=== PATIENT | female | born 1955 | race Caucasian/White ===

== ENCOUNTER → 2020-01-20 15:42 | Outpatient (BNVA) | payer MEDICARE, OTHER, SELFPAY | PROVIDERS: Family Provider Family Medicine; PCP Family Medicine; Visit Provider Emergency Medicine | DX: J11.1 Influenza due to unidentified influenza virus with other respiratory manifestations (principal) | CPT/HCPCS: 87804 ==

== ENCOUNTER → 2020-10-04 14:39 | Outpatient (BNVA) | payer MEDICARE, OTHER, SELFPAY | PROVIDERS: Family Provider Family Medicine; PCP Family Medicine; Visit Provider Emergency Medicine | DX: R68.89 Other general symptoms and signs (principal); Z20.828 Contact with and (suspected) exposure to other viral communicable diseases; J01.00 Acute maxillary sinusitis, unspecified | CPT/HCPCS: 87400; 87635 ==

== ENCOUNTER → 2022-10-28 14:09 | Outpatient (BNVA) | payer MEDICARE, OTHER, SELFPAY | PROVIDERS: Family Provider Family Medicine; PCP Family Medicine; Visit Provider Nurse Practitioner Family | DX: H93.8X3 Other specified disorders of ear, bilateral (principal); B34.9 Viral infection, unspecified | CPT/HCPCS: 87400; 87426; 87880 ==

== ENCOUNTER → 2023-09-16 16:44 | Outpatient (BNVA) | payer MEDICARE, OTHER, SELFPAY | PROVIDERS: Family Provider Family Medicine; PCP Nurse Practitioner; Visit Provider Nurse Practitioner Family | DX: R53.83 Other fatigue (principal); E03.9 Hypothyroidism, unspecified; R53.1 Weakness | CPT/HCPCS: 80053; 84439; 84443; 84480; 85025 ==

== ENCOUNTER → 2023-09-22 09:14 | Outpatient (BNVA) | payer MEDICARE, OTHER, SELFPAY | PROVIDERS: Family Provider Family Medicine; PCP Nurse Practitioner; Visit Provider Nurse Practitioner | DX: R73.9 Hyperglycemia, unspecified (principal) | CPT/HCPCS: 83036 ==

== ENCOUNTER → 2023-09-27 13:44 | Outpatient (BNVA) | payer MEDICARE, OTHER, SELFPAY | PROVIDERS: Family Provider Family Medicine; PCP Nurse Practitioner; Visit Provider Emergency Medicine | DX: R39.9 Unspecified symptoms and signs involving the genitourinary system (principal); N76.0 Acute vaginitis | CPT/HCPCS: 81000; 87086 ==

== ENCOUNTER → 2024-01-25 11:25 | Outpatient (BNVA) | payer MEDICARE, OTHER, SELFPAY | PROVIDERS: Family Provider Family Medicine; PCP Nurse Practitioner; Visit Provider Nurse Practitioner | DX: M54.50 Low back pain, unspecified (principal); M47.894 Other spondylosis, thoracic region | CPT/HCPCS: 72100 ==

== ENCOUNTER 2024-02-11 12:52 | Outpatient (CLI) | payer MEDICARE, OTHER, SELFPAY ==
--- NOTE | 2024-02-11 13:00 | MM_ITS ---
WS: [id number] BILATERAL 3D TOMOSYNTHESIS DIGITAL DIAGNOSTIC MAMMOGRAPHY WITH CAD CLINICAL INFORMATION: T14.8XXA - Other injury of unspecified body region, initi... HISTORY: Fell with bruising RIGHT breast COMPARISON: 2020 TECHNIQUE: Bilateral CC, MLO, and ML views. FINDINGS: Scattered fibroglandular densities bilaterally. Large dense parenchymal density RIGHT breast likely h ematoma from recent fall. This measures approximately 9.7 x 5.8 cm. Ultrasound is pending. LEFT breast is unremarkable. No suspicious abnormalities in the LEFT breast. Biopsy clip LEFT breast. ULTRASOUND BREAST RIGHT TECHNIQUE: Ultrasound right breast focused area of concern. CLINICAL INFORMATION: T14.8XXA - Other injury of unspecified body region, initi... FINDINGS: Ultrasound RIGHT breast area of concern. In the area of interest is a suspected partially liquefied h ematoma measuring approximately 5.3 x 4.6 x 9.1 cm. No other suspicious abnormalities. Recommend foll ow-up to resolution. IMPRESSION: MM/[place] [id number] BI-RADS: 3-Probably Benign FOLLOW UP: 6 Month Follow-up Recommend 6-month follow-up RIGHT breast diagnostic mammography and ultrasound to confirm improvement/resolution of the suspected hematoma
--- NOTE | 2024-02-11 13:30 | US_ITS ---
WS: [id number] BILATERAL 3D TOMOSYNTHESIS DIGITAL DIAGNOSTIC MAMMOGRAPHY WITH CAD CLINICAL INFORMATION: T14.8XXA - Other injury of unspecified body region, initi... HISTORY: Fell with bruising RIGHT breast COMPARISON: 2020 TECHNIQUE: Bilateral CC, MLO, and ML views. FINDINGS: Scattered fibroglandular densities bilaterally. Large dense parenchymal density RIGHT breast likely h ematoma from recent fall. This measures approximately 9.7 x 5.8 cm. Ultrasound is pending. LEFT breast is unremarkable. No suspicious abnormalities in the LEFT breast. Biopsy clip LEFT breast. ULTRASOUND BREAST RIGHT TECHNIQUE: Ultrasound right breast focused area of concern. CLINICAL INFORMATION: T14.8XXA - Other injury of unspecified body region, initi... FINDINGS: Ultrasound RIGHT breast area of concern. In the area of interest is a suspected partially liquefied h ematoma measuring approximately 5.3 x 4.6 x 9.1 cm. No other suspicious abnormalities. Recommend foll ow-up to resolution. IMPRESSION: US/US breast RT limited* [id number] BI-RADS: 3-Probably Benign FOLLOW UP: 6 Month Follow-up Recommend 6-month follow-up RIGHT breast diagnostic mammography and ultrasound to confirm improvement/resolution of the suspected hematoma
== END 2024-02-11 12:53 | disposition home or self-care (01) ==
LOC: RAD 12:52
PROVIDERS: Family Provider Family Medicine; PCP Nurse Practitioner; Visit Provider Nurse Practitioner
DX: S20.01XA Contusion of right breast, initial encounter (principal); R92.321 Mammographic fibroglandular density, right breast; W19.XXXA Unspecified fall, initial encounter
CPT/HCPCS: 76642; 77062; G0279

== ENCOUNTER → 2024-08-30 10:04 | Outpatient (BNVA) | payer MEDICARE, OTHER, SELFPAY | PROVIDERS: Family Provider Family Medicine; PCP Nurse Practitioner; Visit Provider Nurse Practitioner | DX: E03.9 Hypothyroidism, unspecified (principal) | CPT/HCPCS: 80053; 80061; 84443; 85025 ==

== ENCOUNTER 2024-10-13 13:24 | Outpatient (CLI) | payer MEDICARE, OTHER, SELFPAY ==
--- NOTE | 2024-10-13 13:30 | MM_ITS ---
WS: [id number] RIGHT 3D TOMOSYNTHESIS DIGITAL MAMMOGRAPHY WITH CAD CLINICAL INFORMATION: R92.8 abnormal mammo HISTORY: 6-month follow-up hematoma COMPARISON: 2023 TECHNIQUE: 3 views of the right breast were obtained. FINDINGS: Scattered fibroglandular densities of the right breast. Previously described large hematoma RIGHT [place] is essentially resolved. Small amount of residual parenchymal scarring. Ultrasound of this area i s pending. ULTRASOUND BREAST RIGHT TECHNIQUE: Ultrasound right breast focused area of concern. CLINICAL INFORMATION: R92.8 abnormal mammo FINDINGS: Ultrasound RIGHT breast 9 o'clock position. Previously described liquefied hematoma is essentially resolved compared to previous. Small residual cyst or fluid collection measuring 6 x 4 mm. No other suspicious abnormalities. Recommend return to a nnual screening mammography. MM/MM diag RT tomosynthesis [id number] IMPRESSION: DENSITY: There are scattered areas of fibroglandular density. BI-RADS: 2 - Benign. FOLLOW UP: 1 Year Follow-up Recommend return to annual screening mammography.
--- NOTE | 2024-10-13 14:00 | US_ITS ---
WS: [id number] RIGHT 3D TOMOSYNTHESIS DIGITAL MAMMOGRAPHY WITH CAD CLINICAL INFORMATION: R92.8 abnormal mammo HISTORY: 6-month follow-up hematoma COMPARISON: 2023 TECHNIQUE: 3 views of the right breast were obtained. FINDINGS: Scattered fibroglandular densities of the right breast. Previously described large hematoma RIGHT [place] is essentially resolved. Small amount of residual parenchymal scarring. Ultrasound of this area i s pending. ULTRASOUND BREAST RIGHT TECHNIQUE: Ultrasound right breast focused area of concern. CLINICAL INFORMATION: R92.8 abnormal mammo FINDINGS: Ultrasound RIGHT breast 9 o'clock position. Previously described liquefied hematoma is essentially resolved compared to previous. Small residual cyst or fluid collection measuring 6 x 4 mm. No other suspicious abnormalities. Recommend return to a nnual screening mammography. US/US breast RT limited* [id number] IMPRESSION: DENSITY: There are scattered areas of fibroglandular density. BI-RADS: 2 - Benign. FOLLOW UP: 1 Year Follow-up Recommend return to annual screening mammography.
== END 2024-10-13 13:25 | disposition home or self-care (01) ==
LOC: RAD 13:25
PROVIDERS: Family Provider Family Medicine; PCP Nurse Practitioner; Visit Provider Nurse Practitioner
DX: N60.01 Solitary cyst of right breast (principal); R92.323 Mammographic fibroglandular density, bilateral breasts
CPT/HCPCS: 76642; 77061; G0279

== ENCOUNTER → 2025-09-25 11:28 | Outpatient (BNVA) | payer MEDICARE, SELFPAY | PROVIDERS: Family Provider Family Medicine; PCP Nurse Practitioner; Visit Provider Nurse Practitioner | DX: I10 Essential (primary) hypertension (principal); F32.A Depression, unspecified; E03.9 Hypothyroidism, unspecified; M19.011 Primary osteoarthritis, right shoulder | CPT/HCPCS: 73030; 80053; 84443 ==

== ENCOUNTER → 2025-10-10 11:31 | Outpatient (BNVA) | payer MEDICARE, SELFPAY | PROVIDERS: Family Provider Family Medicine; PCP Nurse Practitioner; Visit Provider Nurse Practitioner | DX: E03.9 Hypothyroidism, unspecified (principal) | CPT/HCPCS: 84443 ==

== ENCOUNTER 2025-10-11 12:46 | Outpatient (CLI) | payer MEDICARE, SELFPAY ==
--- NOTE | 2025-10-11 13:00 | MR_ITS ---
WS: [id number] MRI RIGHT SHOULDER NONCONTRAST TECHNIQUE: Sagittal T2, coronal T1, T2 and proton density imaging. Axial gradient PDE imaging. CLINICAL INFORMATION: M75.101 - Unspecified rotator cuff tear or rupture of rig... COMPARISON: None. FINDINGS: Moderate to advanced arthritis AC joint with fluid and edema. Subacromial spurring. Impingement on the supraspinatus. Small amount of subacromial and subdeltoid fluid. Tendinopathy supraspinatus and infraspinatus. Small intrasubstance tears in the distal supraspinatus and infraspinatus. No tendon retraction. Mild chronic thinning of the supraspinatus and infraspinatus. Normal teres minor. Subscapularis tendon appears intact. Biceps tendon appears intact within the bicipital groove. Intra-articular biceps tendon appears intact. Moderate degenerative narrowing of the glenohumeral articulation. MR/MR shoulder RT wo con* [id number] IMPRESSION: 1. Moderate to advanced arthritis AC joint with fluid and edema. Subacromial s purring impinges the underlying supraspinatus. 2. Tendinopathy supraspinatus and infraspinatus with small interstitial tears. 3. Biceps tendon appears intact within the bicipital groove. 4. Intra-articular biceps tendon appears intact.
== END 2025-10-11 12:47 | disposition home or self-care (01) ==
LOC: RAD 12:47
PROVIDERS: Family Provider Family Medicine; PCP Nurse Practitioner; Visit Provider Nurse Practitioner
DX: M75.101 Unspecified rotator cuff tear or rupture of right shoulder, not specified as traumatic (principal); M13.811 Other specified arthritis, right shoulder; M75.41 Impingement syndrome of right shoulder
CPT/HCPCS: 73221